=== PATIENT | female | born 1935 | race Caucasian/White ===

== ENCOUNTER → 2016-05-31 | Outpatient (CLI) | payer MEDICARE, BC ==
[~2016-05-31] MED LIST: ACETAMINOPHEN PO; ACTOS30 MG PO; ALBUTEROL0.63 MG/3 INH; ALBUTEROL17 GM INH; ALPRAZOLAM PO; AMARYL PO; ASPIRIN EC81 M1 PO; ASPIRIN81 M2 PO; BAYER ASPIRIN325 M1 PO; BREO ELLIPTA 11 EACH INH; BUSPAR5 M1 PO; BUSPAR5 MG PO; CARAFATE1 G PO; CODEINE PO; D3 DOTS2000 UNIT PO; FLEXERIL PO; FLEXERIL10 MG PO; LASIX20 MG PO; LIPITOR PO; LIPITOR40 MG PO; LOPRESSOR PO; METOPROLOL TAR25 MG PO; REGLAN10 MG PO; TYLENOL #4 PO; XANAX XR0.5 MG PO; ZESTRIL10 M1 PO
[2016-05-31 12:56] LABS: HEMATOCRIT 42.4 % (35.0-45.0); HEMOGLOBIN 13.8 gm/dL (12.0-16.0); MEAN CELL VOLUME 92.8 FL (83-96); MEAN CORPUSCULAR HEMOGLOBIN 30.2 PG (28-34); MEAN CORPUSCULAR HGB CONC 32.6 g/dL (30-36); MEAN PLATELET VOLUME 8.1 FL (6.5-11.5); RED BLOOD COUNT 4.58 X10e (3.90-5.30); RED CELL DISTRIBUTION WIDTH 13.2 % (11.0-15.5); URINE APPEARANCE CLEAR; URINE BILIRUBIN NEG (NEG); URINE BLOOD NEG (NEG); URINE COLOR YELLOW; URINE GLUCOSE >1000 MG/DL (NEG); URINE KETONE NEG (NEG); URINE LEUKOCYTE ESTERASE 1+ (NEG); URINE NITRATE POS (NEG); URINE PROTEIN NEG (NEG); URINE SPECIFIC GRAVITY 1.026 (1.003-1.035); URINE UROBILINOGEN 0.2 MG/DL (NEG); WHITE BLOOD COUNT 9.3 X10e3 (4.0-10.5)
[2016-05-31 12:58] LABS: CULTURE INDICATED? YES; URBCS1 AUWI 0-2 /[HPF] (0-2); URINE BACTERIA AUWI 4+ (NEGATIVE); URINE SQUAMOUS EPITHELIAL CELL OCC /[HPF]; UWBCS1 AUWI 50-100 (0-5)
[2016-05-31 13:33] LABS: BUN/CREATININE RATIO 25.83; CALCIUM SERUM 9.6 mg/dL (8.4-10.2); CREATININE SERUM 1.2 mg/dL (0.6-1.4); POTASSIUM 3.7 mmol/L (3.5-5.1)
== END | disposition home or self-care (01) ==
LOC: CAMB 11:39
PROVIDERS: Orthopaedic Surgery
DX: Z01.812 Encounter for preprocedural laboratory examination (principal); S83.241A Other tear of medial meniscus, current injury, right knee, initial encounter; I25.10 Atherosclerotic heart disease of native coronary artery without angina pectoris; I50.9 Heart failure, unspecified; K21.9 Gastro-esophageal reflux disease without esophagitis; J44.9 Chronic obstructive pulmonary disease, unspecified; E11.9 Type 2 diabetes mellitus without complications
CPT/HCPCS: 36415; 80048; 81003; 85027; 87086; 87088; 87186

== ENCOUNTER → 2016-06-12 | Day surgery (SDC) | payer MEDICARE, BC ==
--- NOTE | ~2016-06-12 | OR ---
Unit #: [id number] #: [id number] Patient: SAMRA FRYE [id number] [address] [address] [id number] O MR#: [id number] NAME: SAMRA FRYE. ROOM: Date of Procedure: 06/12/2016 Admission Date: 06/12/2016 Surgeon: Homero Morejon M.D. : 1935 Attending Physician: Homero Morejon M.D. Primary Care Physician: Ashish Franks M.D. OPERATIVE REPORT PREOPERATIVE DIAGNOSIS Medial meniscal tear of the right knee. POSTOPERATIVE DIAGNOSIS Medial meniscal tear of the right knee. PROCEDURE PERFORMED Arthroscopic partial medial meniscectomy. ANESTHESIA General. DESCRIPTION OF PROCEDURE The patient was brought to the operating room, given a general anesthetic. Tourniquet placed around the right leg. The right leg was prepped and draped in a sterile fashion. The arthroscope was introduced through the inferolateral portal. The knee was visualized. Suprapatellar pouch was free of debris. The patellofemoral joint showed some chondromalacia changes. Medial compartment was entered. There was a tear in the very far horn of the medial meniscus. This was resected using a straight and up-biting basket and a 3.5 incisor blade. Remaining portion of the meniscus was stable. The lateral meniscus was found to be intact. The patient had some grade 3 chondral changes on the medial side, but no exposed bone. We then removed all the fluid from the knee. The joint was injected with 15 mL of 0.5% plain Marcaine. Sterile dressing was applied and the patient's general anesthetic was reversed. ESTIMATED BLOOD LOSS Less than 25 mL. Dictated by... Uriel Jon/ladonna TD: 06/17/2016 19:19 JOB #: [id number] Unit #: [id number] #: [id number] Patient: SAMRA FRYE OPERATIVE REPORT Page 1 of 1 X Homero Morejon MD X PROCEDURE OPERATIVE NOTE
[2016-06-12 08:14] LABS: URINE SOURCE CLEAN CATCH
[2016-06-12 08:22] LABS: URINE APPEARANCE CLEAR; URINE BILIRUBIN NEG (NEG); URINE BLOOD NEG (NEG); URINE COLOR YELLOW; URINE GLUCOSE 250 MG/DL (NEG); URINE KETONE NEG (NEG); URINE LEUKOCYTE ESTERASE 2+ (NEG); URINE NITRATE NEG (NEG); URINE PROTEIN NEG (NEG); URINE SPECIFIC GRAVITY 1.018 (1.003-1.035)
[2016-06-12 08:25] LABS: CULTURE INDICATED? YES; URBCS1 AUWI 0-2 /[HPF] (0-2); URINE BACTERIA AUWI 1+ (NEGATIVE); URINE SQUAMOUS EPITHELIAL CELL OCC /[HPF]; UWBCS1 AUWI 25-50 (0-5)
== END | disposition home or self-care (01) ==
LOC: CSUR 07:28
PROVIDERS: Orthopaedic Surgery
DX: S83.241A Other tear of medial meniscus, current injury, right knee, initial encounter (principal); J45.909 Unspecified asthma, uncomplicated; I25.2 Old myocardial infarction; J43.9 Emphysema, unspecified; E11.9 Type 2 diabetes mellitus without complications; I50.9 Heart failure, unspecified; K21.9 Gastro-esophageal reflux disease without esophagitis; I25.10 Atherosclerotic heart disease of native coronary artery without angina pectoris; F17.210 Nicotine dependence, cigarettes, uncomplicated; Z95.1 Presence of aortocoronary bypass graft; Z87.440 Personal history of urinary (tract) infections; Z87.19 Personal history of other diseases of the digestive system; Z98.1 Arthrodesis status; Z90.49 Acquired absence of other specified parts of digestive tract; Z87.01 Personal history of pneumonia (recurrent); Z90.710 Acquired absence of both cervix and uterus; Z88.2 Allergy status to sulfonamides; Z88.5 Allergy status to narcotic agent; Z88.8 Allergy status to other drugs, medicaments and biological substances; Z95.2 Presence of prosthetic heart valve; X58.XXXA Exposure to other specified factors, initial encounter
CPT/HCPCS: 81003; 82947; 87086; J2405; J3010